=== PATIENT | male | born 1980 | race Caucasian/White ===

== ENCOUNTER → 2018-12-03 | Outpatient (CLI) | payer MEDICARE, MEDICAID | END | disposition home or self-care (01) | LOC: RAD 12:36 | PROVIDERS: ATTEND Internal Medicine Critical Care Medicine | DX: H91.23 Sudden idiopathic hearing loss, bilateral (principal) | CPT/HCPCS: 70551 ==

== ENCOUNTER 2023-11-04 12:04 | Inpatient (IN) | payer MEDICARE, MEDICAID ==
[~2023-11-04] VITALS: Ht 182.9 cm; Wt 102.5 kg
[2023-11-04 12:49] LABS: BASOPHILS % 0.8 % (0.0-2.0); EOSINOPHILS % 3.8 % (0.0-5.0); HEMATOCRIT. 22.5 % (42.0-52.0); HEMOGLOBIN. 7.6 g/dL (14.0-18.0); LYMPHOCYTES % 15.9 % (20.0-50.0); MEAN CORPUSCULAR HEMOGLOBIN 29.7 pg (28.0-32.0); MEAN CORPUSCULAR HGB CONC 33.5 g/dL (31.0-37.0); MEAN CORPUSCULAR VOLUME 88.7 fL (80.0-94.0); MONOCYTES % 5.5 % (2.0-8.0); PLATELET 271 x1000/uL (130-400); RED BLOOD CELL COUNT 2.54 mill/uL (4.7-6.1); RED CELL DISTRIBUTION WIDTH 15.2 % (11.6-14.6); WHITE BLOOD COUNT 12.5 x1000/uL (4.5-11.0)
[2023-11-04 13:02] LABS: CALCIUM 9.6 mg/dL (8.7-10.4)
[2023-11-04 13:26] LABS: IRON 49 ug/dL (65-175)
[2023-11-04 13:29] LABS: TOTAL IRON BINDING CAPACITY 216 ug/dl (250-425)
[2023-11-04 13:32] LABS: FOLIC ACID (FOLATE) SERUM > 20.00 ng/mL (>5.38); VITAMIN B12 SERUM 752 pg/mL (211-911)
[2023-11-04 14:41] LABS: CREATININE 10.7 mg/dL (0.6-1.3)
[2023-11-04] MEDS ORDERED: ONDANSETRON HCL 4MG/2ML INJ IV PRN (22:00)
[2023-11-04] MEDS ORDERED: HYDROCODONE/ACETAMINOPHEN 5/325MG TABLET PO PRN (22:00)
[2023-11-04] MEDS ORDERED: MAGNESIUM/ALUMINUM HYDROXIDE/SIMETHICONE 30ML UDC PO PRN (22:00)
[2023-11-04] MEDS ORDERED: ACETAMINOPHEN 325MG TABLET PO PRN (22:00)
[2023-11-05] MEDS ORDERED: AMLODIPINE 10MG TABLET PO SCH (02:15)
[2023-11-05] MEDS ORDERED: AMLODIPINE 10MG TABLET PO PRN (02:30)
[2023-11-05] MEDS: HYDRALAZINE 20MG/ML VIAL IV PRN (02:45)
[2023-11-05 06:52] LABS: BASOPHILS % 0.9 % (0.0-2.0); EOSINOPHILS % 3.2 % (0.0-5.0); HEMATOCRIT. 22.3 % (42.0-52.0); HEMOGLOBIN. 7.4 g/dL (14.0-18.0); MEAN CORPUSCULAR HEMOGLOBIN 29.8 pg (28.0-32.0); MEAN CORPUSCULAR HGB CONC 33.3 g/dL (31.0-37.0); MEAN CORPUSCULAR VOLUME 89.6 fL (80.0-94.0); MEAN PLATELET VOLUME 7.3 fl (7.4-10.4); MONOCYTES % 4.4 % (2.0-8.0); NEUTROPHILS % 75.5 % (40.0-76.0); PLATELET 270 x1000/uL (130-400); RED CELL DISTRIBUTION WIDTH 15.6 % (11.6-14.6); WHITE BLOOD COUNT 14.1 x1000/uL (4.5-11.0)
[2023-11-05 07:00] LABS: CARBON DIOXIDE 28 mEq/L (21-32); CHLORIDE 100 mEq/L (98-107); PROTHROMBIN TIME 11.4 sec (9.6-11.0); SODIUM 138 mEq/L (136-145)
[2023-11-05 07:01] LABS: CALCIUM 9.5 mg/dL (8.7-10.4)
[2023-11-05 07:06] LABS: GLUCOSE 101 mg/dL (70-105); IRON 35 ug/dL (65-175); UREA NITROGEN BLOOD 60 mg/dL (9-23)
[2023-11-05 07:07] LABS: ALANINE AMINOTRANSFERASE 17 IU/L (10-49); ALBUMIN 4.2 g/dL (3.2-4.8); ASPARTATE AMINOTRANSFERASE 19 IU/L (<34)
[2023-11-05 07:08] LABS: BILIRUBIN DIRECT 0.2 mg/dL (<=3.0); BILIRUBIN TOTAL 0.3 mg/dL (0.1-1.0); PROTEIN TOTAL 6.8 g/dL (6.0-8.3)
[2023-11-05 07:09] LABS: PHOSPHORUS 4.7 mg/dL (2.5-4.9); TOTAL IRON BINDING CAPACITY 228 ug/dl (250-425); TROPONIN I HIGH SENSITIVITY 44 ng/L (3.0-53)
[2023-11-05 07:37] LABS: CREATININE 13.6 mg/dL (0.6-1.3)
[2023-11-05] MEDS: PANTOPRAZOLE SODIUM 40 MG/VIAL IV SCH (09:11)
[2023-11-05] MEDS: FOLIC ACID/VITAMIN B COMP W-C TABLET PO SCH (09:11)
[2023-11-05] MEDS: AMLODIPINE 10MG TABLET PO SCH (09:13)
[2023-11-05] MEDS: CLONIDINE 0.1MG TABLET PO PRN (10:18)
[2023-11-05] MEDS ORDERED: NALOXONE HCL 0.4MG/ML VIAL IV PRN (16:00)
[2023-11-05] MEDS: EPOETIN ALFA-EPBX 4,000 UNIT/ML VIAL SUBCUT SCH (21:09)
[2023-11-05 21:55] VITALS: BP 196/86; PULSE 76; RESP 19; TEMP 98.2
[2023-11-05 22:00] VITALS: BP 198/88; PULSE 76; RESP 18; TEMP 98.2
[2023-11-05 23:56] LABS: BODY FLUID MONOCYTES 0 %
[2023-11-06] VITALS (7 sets, daily range): BP systolic 149–200; BP diastolic 67–89; PULSE 68–79; RESP 18–19; TEMP 97.5–98.8; O2SAT 100
[2023-11-06 00:08] LABS: BODY FLUID RBC 8 /cu mm (0-2000); BODY FLUID WBC 9 /cu mm (0-200)
[2023-11-06 07:30] LABS: POTASSIUM 3.4 mEq/L (3.5-5.1)
[2023-11-06 07:31] LABS: CALCIUM 9.4 mg/dL (8.7-10.4)
[2023-11-06 07:50] LABS: EOSINOPHILS % 2.9 % (0.0-5.0); HEMATOCRIT. 22.5 % (42.0-52.0); HEMOGLOBIN. 7.6 g/dL (14.0-18.0); LYMPHOCYTES % 14.2 % (20.0-50.0); MEAN CORPUSCULAR HGB CONC 33.7 g/dL (31.0-37.0); MEAN PLATELET VOLUME 7.7 fl (7.4-10.4); NEUTROPHILS % 76.9 % (40.0-76.0); PLATELET 275 x1000/uL (130-400); RED BLOOD CELL COUNT 2.53 mill/uL (4.7-6.1); RED CELL DISTRIBUTION WIDTH 15.8 % (11.6-14.6); WHITE BLOOD COUNT 12.2 x1000/uL (4.5-11.0)
[2023-11-06 08:34] LABS: CREATININE 13.7 mg/dL (0.6-1.3)
[2023-11-06] MEDS ORDERED: DEXTROSE 50% WATER 50ML SYRINGE IV PRN (09:45)
[2023-11-06] MEDS: POTASSIUM CHLORIDE 20MEQ TABLET SR PO NR (10:52)
[2023-11-06] MEDS ORDERED: AMLO10TA80 PO (11:51)
[2023-11-06] MEDS ORDERED: PANT40TA51 MT (11:51)
[2023-11-06] MEDS: INSULIN LISPRO 100 UNITS/ML SUBCUT SCH (12:38)
[2023-11-06] MEDS: BLOOD SUGAR DIAGNOSTIC STRIP TEST SCH (13:06)
[2023-11-06] MEDS: LOSARTAN 100 MG TABLET PO SCH (14:21)
[2023-11-06] MEDS: NIFEDIPINE XL 60MG TAB PO NR (16:30)
[2023-11-06] MEDS ORDERED: INSULIN GLARGINE 100 UNITS/ML SUBCUT SCH (22:00)
== END 2023-11-06 19:03 | disposition home or self-care (01) | DRG 377 ==
LOC: ER 12:04 → 5WST 16:25 → EDBEDREQ 16:35 → EDBEDREQTM 16:35 → 6WST 11-06 09:11
PROVIDERS: ADMIT Family Medicine Adult Medicine; ATTEND Family Medicine Adult Medicine
PROC: 5A1D70Z Performance of Urinary Filtration, Intermittent, Less than 6 Hours Per Day (ICD-10-PCS; principal; 2023-11-05)
PROC: 5A1D70Z Performance of Urinary Filtration, Intermittent, Less than 6 Hours Per Day (ICD-10-PCS; 2023-11-06)
DX: K62.5 Hemorrhage of anus and rectum (principal); N18.6 End stage renal disease; I12.0 Hypertensive chronic kidney disease with stage 5 chronic kidney disease or end stage renal disease; D64.9 Anemia, unspecified; D72.829 Elevated white blood cell count, unspecified; E10.22 Type 1 diabetes mellitus with diabetic chronic kidney disease; Z86.74 Personal history of sudden cardiac arrest; Z79.4 Long term (current) use of insulin; Z82.49 Family history of ischemic heart disease and other diseases of the circulatory system; Z99.2 Dependence on renal dialysis
CPT/HCPCS: 36415; 80048; 80076; 82607; 82728; 82746; 82962; 83540; 83550; 83735; 84100; 84484; 85025; 85044; 90935; 90945; 93970; 99285; J0360; J0885; J1815; J2470